=== PATIENT | female | born 1995 | race Hispanic/Latino ===

== ENCOUNTER 2023-05-25 03:03 | Emergency (ER) | payer OTHER, SELFPAY ==
[~2023-05-25] VITALS: Ht 152.4 cm; Wt 75.6 kg
[2023-05-25 03:04] VITALS: BP 106/60; TEMP 98.7; O2SAT 98
[2023-05-25] MEDS ORDERED: AMOX500C PO (05:03)
[2023-05-25] MEDS ORDERED: CIPR7.5D5 OTIC (05:03)
[2023-05-25] MEDS ORDERED: CIPRODEX OTIC SUSP 7.5ML AU ONE (05:05)
[2023-05-25] MEDS ORDERED: AMOXICILLIN 500 MG CAP PO ONE (05:05)
== END 2023-05-25 05:22 | disposition home or self-care (01) ==
LOC: M ED 03:03
DX: H66.92 Otitis media, unspecified, left ear (principal); H60.91 Unspecified otitis externa, right ear

== ENCOUNTER 2023-05-25 12:51 | Emergency (ER) | payer OTHER ==
[~2023-05-25] VITALS: Ht 152.4 cm; Wt 75.0 kg
[~2023-05-25 12:51] MED LIST: AMOX500C PO; CIPR7.5D5 OTIC
[2023-05-25 12:53] VITALS: BP 134/72; TEMP 99.5; O2SAT 96
== END 2023-05-25 18:49 | disposition left against medical advice (07) ==
LOC: M ED 12:51
DX: H92.09 Otalgia, unspecified ear (principal); Z53.21 Procedure and treatment not carried out due to patient leaving prior to being seen by health care provider

== ENCOUNTER → 2023-07-05 | Outpatient (CLI) | payer OTHER ==
[2023-07-05 15:31] LABS: HEMATOCRIT 34.8 % (36.0-47.0); HEMOGLOBIN 11.7 g/dl (12.0-15.5); MEAN CORPUSCULAR HEMOGLOBIN 31.4 pg (27.0-33.0); MEAN CORPUSCULAR HGB CONC 33.6 g/dl (32.0-36.5); MEAN CORPUSCULAR VOLUME 93.3 fl (80.0-96.0); PLATELET COUNT, AUTOMATED 266 10^3/uL (150-450); RED BLOOD COUNT 3.73 10^6/uL (4.00-5.40); WHITE BLOOD COUNT 8.1 10^3/uL (4.0-10.0)
[2023-07-05 16:00] LABS: HIV 1&2 SCREEN NEGATIVE (NEGATIVE)
[2023-07-05 16:08] LABS: HEPATITIS C VIRUS ABY INDEX 0.05 INDEX (<0.8)
[2023-07-05 16:37] LABS: GC DNA AMPLIFICATION NEGATIVE (NEGATIVE)
== END ==
LOC: M PLALAB 10:26
PROVIDERS: ATTEND Advanced Practice Midwife
DX: Z34.81 Encounter for supervision of other normal pregnancy, first trimester (principal)